=== PATIENT | female | born 1985 | race Two or more races ===

== ENCOUNTER 2016-09-16 07:34 | Emergency (ER) | payer OTHER ==
[~2016-09-16] VITALS: Ht 162.6 cm; Wt 84.8 kg
[2016-09-16 07:38] VITALS: BP 120/78
== END 2016-09-16 09:33 | disposition home or self-care (01) ==
LOC: ER 07:34
DX: F41.9 Anxiety disorder, unspecified (principal); Z88.6 Allergy status to analgesic agent

== ENCOUNTER 2016-11-27 19:59 | Emergency (ER) | payer OTHER ==
[~2016-11-27] VITALS: Ht 162.6 cm; Wt 86.2 kg
[2016-11-27 20:30] VITALS: BP 127/77
[2016-11-27 21:31] LABS: Urine Bilirubin Negative (Negative); Urine Blood Negative /uL (Negative); Urine Color Yellow (Yellow); Urine Glucose Normal (Normal); Urine Ketone Negative (Negative); Urine Mucus FEW (None Seen); Urine Nitrite Negative (Negative); Urine RBC 1 /hpf (0 - 4); Urine Squamous Epithelial Cell FEW /hpf (<5)
== END 2016-11-28 03:58 | disposition left against medical advice (07) ==
LOC: ER 20:09
DX: R51 Headache (principal); M25.512 Pain in left shoulder; Z53.21 Procedure and treatment not carried out due to patient leaving prior to being seen by health care provider; V89.2XXA Person injured in unspecified motor-vehicle accident, traffic, initial encounter; Y93.9 Activity, unspecified; Y99.9 Unspecified external cause status; Y92.9 Unspecified place or not applicable
CPT/HCPCS: 81001; 81025

== ENCOUNTER 2023-12-02 05:55 | Emergency (ER) | payer BC, OTHER ==
[~2023-12-02] VITALS: Ht 162.6 cm; Wt 78.8 kg
[2023-12-02] MEDS ORDERED: METOCLOPRAMIDE HCL 5MG/ml INJ 2ml VIAL IV ONE (07:00)
[2023-12-02] MEDS ORDERED: PANTOPRAZOLE 40 MG/10 ML VIAL INJ IV ONE (07:00)
[2023-12-02] MEDS ORDERED: PANTOPRAZOLE 80 MG in SODIUM CHL 0.9% 100 ML IV ONE (07:00)
[2023-12-02 07:52] LABS: Basophils # (auto) 0 10 ^3/uL (0-0.2); Basophils % (auto) 0.1 % (0.0-2.0); Eosinophils # (auto) 0 10 ^3/uL (0-0.8); Eosinophils % (auto) 0.2 % (0.0-7.0); Hematocrit 39.8 % (36.0-46.0); Hemoglobin 13.2 g/dL (12.2-16.2); Lymphocytes # (auto) 1.1 10 ^3/uL (0.4-5.4); Lymphocytes % (auto) 7.8 % (10.0-50.0); Mean Corpuscular Hemoglobin 29.9 pg (28.0-32.0); Mean Corpuscular Hgb Conc. 33.2 g/dL (32.0-36.0); Monocytes # (auto) 0.4 10 ^3/uL (0-1.3); Monocytes % (auto) 2.8 % (0.0-12.0); Neutrophils # (auto) 12.4 10 ^3/uL (1.6-8.6); Neutrophils % (auto) 89.1 % (37.0-80.0); Red Blood Cells 4.42 10^6/uL (4.0-5.20); Red Cell Distribution Width 14.2 % (11.8-14.3); White Blood Cell 13.9 10^3/uL (4.4-10.8)
[2023-12-02 08:07] LABS: INR 1.03 (0.9-1.15); Partial Thromboplastin Time 26.4 SEC (24.5-34.5); Prothrombin Time 10.9 sec (9.3-11.8)
[2023-12-02 08:11] LABS: Alanine Aminotransferase 24 U/L (7-40); Albumin 4.7 g/dL (3.2-4.8); Alkaline Phosphatase 82 U/L (46-116); Anion Gap 8 (5-15); Aspartate Aminotransferase 16 U/L (13-40); BUN/Creatinine Ratio 11.4 (10.0-20.0); Blood Urea Nitrogen 9 mg/dL (9-23); Calcium 9.8 mg/dL (8.5-10.1); Carbon Dioxide 23 mmol/L (20-30); Chloride 108 mmol/L (98-107); Glucose 127 mg/dL (74-106); Potassium 3.5 mmol/L (3.5-5.1); Sodium 139 mmol/L (136-145)
[2023-12-02] MEDS: LIDOCAINE VISCOUS 2% 15ML UD PO ONE (08:11)
[2023-12-02] MEDS: MAALOX PLUS or MAALOX 30 ML PO ONE (08:11)
[2023-12-02] MEDS: SODIUM CHLORIDE 0.9% 1,000 ML IVB ONE (08:11)
[2023-12-02 08:12] LABS: Bilirubin, Total 0.9 mg/dL (0.2-1.0); Total Protein 7.4 g/dL (5.7-8.2)
[2023-12-02] MEDS: HALOPERIDOL LACTATE 5 MG/ML INJ VIAL IV ONE ×2 (08:41→11:16)
[2023-12-02] MEDS: ONDANSETRON HCL 4 MG/2 ML VIAL IV ONE ×2 (08:42→11:13)
[2023-12-02] MEDS: MORPHINE SULFATE 4 MG/ML SYR/VIAL IV ONE (08:42)
[2023-12-02] MEDS ORDERED: ZOFR4T PO (11:42)
[2023-12-02] MEDS ORDERED: METO-281 PO (11:42)
[2023-12-02 11:51] VITALS: BP 103/59; PULSE 55; RESP 18; TEMP 98.5; O2SAT 97
[2023-12-03] MEDS ORDERED: IBUP-1456 PO (13:36)
== END 2023-12-02 12:03 | disposition home or self-care (01) ==
LOC: ER 05:55
DX: F12.90 Cannabis use, unspecified, uncomplicated (principal); R11.15 Cyclical vomiting syndrome unrelated to migraine; F41.9 Anxiety disorder, unspecified; F17.210 Nicotine dependence, cigarettes, uncomplicated; Z88.5 Allergy status to narcotic agent
CPT/HCPCS: 36415; 80053; 83605; 84484; 85025; 85610; 85730; 96361; 96374; 96375; 96376; 99285; J1630; J2270; J2405; J2470; J7030

== ENCOUNTER 2023-12-03 12:25 | Emergency (ER) | payer BC ==
[~2023-12-03] VITALS: Ht 162.6 cm; Wt 78.0 kg
[~2023-12-03 12:25] MED LIST: METO-281 PO; ZOFR4T PO
[2023-12-03 13:12] VITALS: BP 137/82; PULSE 99; RESP 16; TEMP 99; O2SAT 98
[2023-12-03] MEDS ORDERED: IBUP-1456 PO (13:36)
== END 2023-12-03 13:42 | disposition home or self-care (01) ==
LOC: ER 12:25
DX: M79.10 Myalgia, unspecified site (principal); M54.2 Cervicalgia; R51.9 Headache, unspecified; M79.602 Pain in left arm; M54.9 Dorsalgia, unspecified; T40.2X5A Adverse effect of other opioids, initial encounter; F17.210 Nicotine dependence, cigarettes, uncomplicated; F12.10 Cannabis abuse, uncomplicated; Z88.6 Allergy status to analgesic agent; Y92.9 Unspecified place or not applicable